=== PATIENT | female | born 1940 | race Caucasian/White ===

== ENCOUNTER 2016-11-07 05:55 | Emergency (ER) | payer MEDICARE, MEDICAID ==
[2015-03-21 08:45] VITALS: BMI 33.9
[~2016-11-07 05:55] MED LIST: ASPIRIN81 MG PO; ATIVAN1 MG PO; COREG6.25 MG PO; IPRAT-ALBUT 0.5-3 ML UPD; ISOSORBIDE MONO60 M1 PO; K-TAB10 MEQ PO; LASIX40 MG PO; PLAVIX75 MG PO; PRAVACHOL20 MG PO; PRILOSEC20 MG PO
[2016-11-07 06:39] LABS: BASOPHILS 0.1 % (0.0-2.0); EOSINOPHILS 2.2 % (0-7); HEMOGLOBIN 15.3 g/dL (12-16); IMMATURE GRANULOCYTES 0.5 % (0-5); LYMPHOCYTES 23.4 % (15-50); MCH 30.4 pg (26.0-34.0); MCHC 31.9 g/dL (31.0-37.0); MCV 95.4 fL (80.0-100.0); MEAN PLATELET VOLUME 10.1 fL (7.4-10.4); MONOCYTES 9.2 % (2-11); NEUTROPHILS 64.6 % (40-80); PLATELET COUNT 132 10x3/uL (130-400); RBC 5.03 10x6/uL (4.00-5.40); RDW 14.5 % (11.5-14.5); WBC 7.6 10x3/uL (4.8-10.8)
[2016-11-07 06:55] LABS: ALBUMIN 3.2 g/dL (3.4-5.0); ALKALINE PHOSPHATASE 76 U/L (46-116); ALT (SGPT) 23 U/L (10-68); BILIRUBIN - TOTAL 0.59 mg/dL (0.2-1.3); CALC OSMOLALITY 279 mosm/kg (275-300); CALCIUM 8.9 mg/dL (8.5-10.1); CHLORIDE - SERUM 96 mmol/L (98-107); CREATININE - SERUM 0.7 mg/dL (0.6-1.3); GLUCOSE 139 mg/dL (74-106); POTASSIUM - SERUM 3.4 mmol/L (3.5-5.1); PROTEIN - SERUM 6.4 g/dL (6.4-8.2); SODIUM 139 mmol/L (136-145); UREA NITROGEN 13 mg/dL (7-18); eGFR NON AFRICAN AMERICAN 87 mL/min (90-120)
[2016-11-07 09:26] LABS: MAGNESIUM - SERUM 1.7 mg/dL (1.8-2.4)
== END 2016-11-07 10:11 | disposition home or self-care (01) ==
LOC: D.ER 05:55
PROVIDERS: Emergency Medicine; Family Medicine
DX: J44.1 Chronic obstructive pulmonary disease with (acute) exacerbation (principal); R09.02 Hypoxemia

== ENCOUNTER 2016-11-16 13:56 | Inpatient (IN) | payer MEDICARE, MEDICAID ==
[~2016-11-16] VITALS: Ht 157.5 cm; Wt 81.6 kg
[2016-11-16 14:33] LABS: BASOPHILS 0.2 % (0.0-2.0); EOSINOPHILS 1.5 % (0-7); HEMATOCRIT 43.5 % (36.0-48.0); IMMATURE GRANULOCYTES 0.3 % (0-5); LYMPHOCYTES 29.1 % (15-50); MCH 30.2 pg (26.0-34.0); MCHC 32.2 g/dL (31.0-37.0); MCV 93.8 fL (80.0-100.0); MEAN PLATELET VOLUME 10.6 fL (7.4-10.4); MONOCYTES 9.6 % (2-11); NEUTROPHILS 59.3 % (40-80); PLATELET COUNT 132 10x3/uL (130-400); RBC 4.64 10x6/uL (4.00-5.40); RDW 14.2 % (11.5-14.5); WBC 6.1 10x3/uL (4.8-10.8)
[2016-11-16 15:29] LABS: ALBUMIN 3.1 g/dL (3.4-5.0); ALKALINE PHOSPHATASE 69 U/L (46-116); ALT (SGPT) 23 U/L (10-68); BILIRUBIN - TOTAL 0.36 mg/dL (0.2-1.3); CALC OSMOLALITY 272 mosm/kg (275-300); CALCIUM 8.9 mg/dL (8.5-10.1); CHLORIDE - SERUM 96 mmol/L (98-107); CREATININE - SERUM 0.7 mg/dL (0.6-1.3); GLUCOSE 143 mg/dL (74-106); POTASSIUM - SERUM 4.1 mmol/L (3.5-5.1); PROTEIN - SERUM 6.1 g/dL (6.4-8.2); SODIUM 136 mmol/L (136-145); UREA NITROGEN 11 mg/dL (7-18); eGFR NON AFRICAN AMERICAN 87 mL/min (90-120)
[2016-11-16 15:38] LABS: PRO BNP 265 pg/mL (0-125)
[2016-11-16 15:40] LABS: TROPONIN-I 0.017 ng/mL (0.000-0.060)
[2016-11-16 16:01] LABS: APPEARANCE CLEAR (CLEAR); BILIRUBIN NEGATIVE (NEGATIVE); COLOR YELLOW (YELLOW); GLUCOSE NEGATIVE (NEGATIVE); KETONE NEGATIVE (NEGATIVE); LEUKOCYTE ESTERASE NEGATIVE (NEGATIVE); NITRITE NEGATIVE (NEGATIVE); PROTEIN NEGATIVE (NEGATIVE); UROBILINOGEN NORMAL (NORMAL)
--- NOTE | 2016-11-16 17:45 | NUR ---
PT TO ROOM 2227 FROM [facility].ASSESSMENT PER ADMIT PACK.PT UNABLE OR UNWILLING TO ANSWER QUESTIONS AT THIS TIME,RE... MEDS AND HISTORY.SPOKE WITH HER SON VINICIUS MARSHALL WHO STATES SHE CAN BECOME DIFFICULT AT TIMES WHEN SHE GETS MAD.HER SON ALSO STATES SHE IS ON [facility].SON STATES SHE MAKES HER OWN MEDIAL DECISIONS AND WISHES TO BE DNR. MYSELF AND RICARDO CHEEMA R.N. CONFIRMED THIS WITH PT AND INDEED SHE WISHES TO BE DNR.
[2016-11-16 19:00] VITALS: BP 153/75
--- NOTE | 2016-11-16 19:43 | NUR ---
BROUGHT PATIENT WATER AND A BLANKET PER HER REQUEST. PATIENT DENIES OTHER NEEDS AT THIS TIME. BED IN LOWEST POSITION AND CALL LIGHT WITHIN REACH. ENCOURAGED PATIENT TO CALL IF SHE HAS FURTHER NEEDS.
[2016-11-17] VITALS: BP 184/93
[2016-11-17 04:00] VITALS: BP 131/61
[2016-11-17 06:22] LABS: BASOPHILS 0.2 % (0.0-2.0); EOSINOPHILS 0.3 % (0-7); HEMOGLOBIN 14.5 g/dL (12-16); IMMATURE GRANULOCYTES 0.2 % (0-5); LYMPHOCYTES 26.4 % (15-50); MCH 30.6 pg (26.0-34.0); MCV 92.8 fL (80.0-100.0); MEAN PLATELET VOLUME 10.3 fL (7.4-10.4); MONOCYTES 11.9 % (2-11); RBC 4.74 10x6/uL (4.00-5.40); RDW 14.2 % (11.5-14.5); WBC 6.3 10x3/uL (4.8-10.8)
[2016-11-17 06:38] LABS: PLATELET COUNT 163 10x3/uL (130-400)
[2016-11-17 06:58] LABS: ALBUMIN 2.6 g/dL (3.4-5.0); ANION GAP 9.8 mmol/L (8-16); BILIRUBIN - TOTAL 0.5 mg/dL (0.2-1.3); CALCIUM 9.1 mg/dL (8.5-10.1); CARBON DIOXIDE 36.8 mmol/L (21.0-32.0); CREATININE - SERUM 0.8 mg/dL (0.6-1.3); POTASSIUM - SERUM 3.6 mmol/L (3.5-5.1); PROTEIN - SERUM 6.2 g/dL (6.4-8.2)
[2016-11-17 08:00] VITALS: BP 126/69
--- NOTE | 2016-11-17 09:16 | NUR ---
PT ASSESSMENT COMPLETE NO ACUTE DISTRESS NTOED VOICES ALL NEEDS TO STAFF HAS TRILLOGY NOTSD HOME UNIT PER PRESET ORDERS. LUNGS WITH DIMINISHED SOUNDS TO BASES BILATERALLY. BSA X 4 CELLULITIS NOTED TO BLE.
[2016-11-17 13:42] VITALS: Ht 157.5 cm; Wt 81.6 kg
--- NOTE | 2016-11-17 14:05 | NUR ---
IN BED AT THIS TIME. TRILOGY VENT ON AND IN USE. PROVIDED PT WITH WARM BLANKET. BED ALARM ON AND SRX2. CALL LIGHT IN REACH, DOOR REMAINS OPEN. WILL CONTINUE WITH PLAN OF CARE.
--- NOTE | 2016-11-17 14:32 | NUR ---
WALT MET WITH PATIENT AND SHE STATED SHE WAS ON HOSPICE AT ADMIT AND WOULD RETURN TO HOSPICE WHEN DISCHARGED. WALT CALLED [facility] (VANESSA) AND SHE STATED THE PATIENT WAS STILL ON HOSPICE BECAUSE SHE CAME TO HOSPITAL WITH ABCESS ON LEG AND THAT WAS NOT RELATED TO HER HOSPICE DX.
--- NOTE | 2016-11-17 14:53 | NUR ---
PT REQUESTED AND RECIEVED ATIVAN 1 MG PO FOR ANXIOUSNESS. WILL MONTIOR EFFECTIVENESS WAS UP IN CHAIR AT BEDSIDE TODAY FOR 2 HRS. TRILLOGY ON AND FUNCTIONAL BED ALARM IN PLACE
[2016-11-17] MEDS ORDERED: DIFLUCAN150 MG PO (15:00)
[2016-11-17] MEDS ORDERED: OMNICEF300 MG PO (15:00)
[2016-11-17] MEDS ORDERED: NYSTATIN1 PWD TOPICAL (15:00)
[2016-11-17 16:00] VITALS: BP 105/43
--- NOTE | 2016-11-17 16:03 | NUR ---
CM REASSESSMENT NOTE: PATIENT IS DISCHARGING HOME BY AMBULANCE AND IS ON [facility] WHEN DISCHARGED. VINICIUS (PATIENTS SON) IS AWARE DISCHARGE AND WILL BE AT HOME.
--- NOTE | 2016-11-17 18:14 | NUR ---
PT DISCHARGED TO HOME WITH HOSPICE CARE VIA AMBULANCE ALL BELONGINGS SENT WITH PT NIKOS SENT
== END 2016-11-17 18:15 | disposition home health service (06) | DRG 300 ==
LOC: D.ER 13:56 → D.SDCHOLD 16:29 → D.MS 16:29 → OBSVTIME 16:30 → D.MS 16:31
PROVIDERS: Emergency Medicine; ADMIT Family Medicine
DX: I87.391 Chronic venous hypertension (idiopathic) with other complications of right lower extremity (principal); L03.115 Cellulitis of right lower limb; J96.10 Chronic respiratory failure, unspecified whether with hypoxia or hypercapnia; F17.203 Nicotine dependence unspecified, with withdrawal; I10 Essential (primary) hypertension; J44.9 Chronic obstructive pulmonary disease, unspecified; R91.8 Other nonspecific abnormal finding of lung field; F41.9 Anxiety disorder, unspecified; Z66 Do not resuscitate

== ENCOUNTER 2017-01-16 18:07 | Observation (INO) | payer MEDICARE, MEDICAID ==
[~2017-01-16] VITALS: Ht 165.1 cm; Wt 85.0 kg
[~2017-01-16 18:07] MED LIST changes: +COREG25 MG PO; -COREG6.25 MG PO; +DIFLUCAN150 MG PO; -K-TAB10 MEQ PO; +NYSTATIN1 PWD TOPICAL; +OMNICEF300 MG PO; +POTASSIUM CHLO20 MEQ PO
[2017-01-16 18:39] LABS: BASOPHILS 0.1 % (0-2); EOSINOPHILS 1.2 % (0-7); HEMATOCRIT 46.8 % (36.0-48.0); HEMOGLOBIN 15.3 g/dL (12-16); IMMATURE GRANULOCYTES 0.3 % (0-5); LYMPHOCYTES 22.4 % (15-50); MCH 30.5 pg (26.0-34.0); MCHC 32.7 g/dL (31.0-37.0); MCV 93.4 fL (80.0-100.0); MEAN PLATELET VOLUME 10.3 fL (7.4-10.4); MONOCYTES 8.2 % (2-11); NEUTROPHILS 67.8 % (40-80); PLATELET COUNT 158 10x3/uL (130-400); RBC 5.01 10x6/uL (4.00-5.40); RDW 13.9 % (11.5-14.5); WBC 12.3 10x3/uL (4.8-10.8)
[2017-01-16 19:20] LABS: ALBUMIN 3.1 g/dL (3.4-5.0); ALKALINE PHOSPHATASE 72 U/L (46-116); ALT (SGPT) 21 U/L (10-68); BILIRUBIN - TOTAL 0.96 mg/dL (0.2-1.3); CALC OSMOLALITY 272 mosm/kg (275-300); CALCIUM 9.3 mg/dL (8.5-10.1); CARBON DIOXIDE 39.1 mmol/L (21.0-32.0); CHLORIDE - SERUM 94 mmol/L (98-107); CKMB 1.1 U/L (0.0-3.6); CREATINE KINASE 24 UL (21-215); CREATININE - SERUM 0.9 mg/dL (0.6-1.3); GLUCOSE 143 mg/dL (74-106); PRO BNP 335 pg/mL (0-125); PROTEIN - SERUM 6.6 g/dL (6.4-8.2); SODIUM 136 mmol/L (136-145); UREA NITROGEN 10 mg/dL (7-18); eGFR NON AFRICAN AMERICAN 65 mL/min (90-120)
[2017-01-16 19:21] LABS: TROPONIN-I < 0.017 ng/mL (0.000-0.060)
[2017-01-16 19:23] LABS: POTASSIUM - SERUM 2.9 mmol/L (3.5-5.1)
--- NOTE | 2017-01-16 21:40 | NUR ---
REC FROM ER VIA STRETCHER. TRANSFER TO BED WITH 4 NURSES ASSISTING. HAS ON A TRILOGY BIPAP FROM HOME. STATED SHE WEARS 24 HOURS/DAY. STATE SHE STILL SMOKES CIGARETTES. RESP TECH CHECKED O2 SAT AT 92%. IV IN LEFT HAND INTACT SL. CHANGED URINE SOAKED GOWN AND DIAPER. REQUESTED A FRASER. WILL NOTIFY MD OF PATIENT'S REQUEST.ORIENTED TO CALL LIGHT FOR ANY NEEDS OR DISCOMFORTS.
--- NOTE | 2017-01-16 22:00 | NUR ---
CHANGED GOWN AND BEDDING FOR INCONTINENCE OF URINE.
--- NOTE | 2017-01-16 22:15 | NUR ---
CHANGED FOR INCONTINENCE OF URINE, INSERTED FRASER 16F. A SMALL PUNTURE WOUND NOTED INSIDE RIGHT BUTTOCK CHEEK APPROXIMATELY 0.3 CM CIRCUMFERENCE. STATES NO TENDERNESS OR PAIN. LOOKS LIKE OLD HEALING PRESSURE ULCER.
[2017-01-16 23:40] VITALS: BP 108/58
--- NOTE | 2017-01-17 00:45 | NUR ---
REQUESTING UPD TX. REC'D ORDER FROM [facility]U APN TO GIVE ALBUTEROL UPD QID.
[2017-01-17 03:40] VITALS: BP 148/71; BMI 41.6
[2017-01-17 03:43] VITALS: BP 151/65
[2017-01-17 05:42] LABS: BASOPHILS 0.2 % (0-2); EOSINOPHILS 0.7 % (0-7); HEMATOCRIT 45.5 % (36.0-48.0); HEMOGLOBIN 14.8 g/dL (12-16); IMMATURE GRANULOCYTES 0.3 % (0-5); LYMPHOCYTES 17.9 % (15-50); MCH 30.2 pg (26.0-34.0); MCHC 32.5 g/dL (31.0-37.0); MCV 92.9 fL (80.0-100.0); MEAN PLATELET VOLUME 9.7 fL (7.4-10.4); MONOCYTES 8.3 % (2-11); NEUTROPHILS 72.6 % (40-80); PLATELET COUNT 148 10x3/uL (130-400); RDW 13.9 % (11.5-14.5); WBC 12.2 10x3/uL (4.8-10.8)
[2017-01-17 06:02] LABS: ANION GAP 9.3 mmol/L (8-16); CALCIUM 9.2 mg/dL (8.5-10.1); CREATININE - SERUM 0.8 mg/dL (0.6-1.3); POTASSIUM - SERUM 3.3 mmol/L (3.5-5.1)
--- NOTE | 2017-01-17 06:19 | NUR ---
REQUESTED UPDRAFT TX. CALLED RESP TECH. STATED TO EARLY TO ADMIN. EXPLAINED TO PATIENT.
[2017-01-17 09:27] VITALS: BP 157/77
[2017-01-17 09:37] VITALS: Ht 165.1 cm; Wt 85.0 kg
--- NOTE | 2017-01-17 10:57 | NUR ---
Patient Name: KAROLINE RANGEL Admission Status: ER Accout number: [id number] Admission Date: 01-16-2017 : 1940 Admission Diagnosis: Attending: ELAINA Current LOS: 1 Anticipated DC Date: 01-17-2017 Planned Disposition: Home with Hospice Primary Insurance: [facility] PLANNED EXTERNAL PROVIDER: [facility] Discharge Planning Comments: * Is the patient Alert and Oriented? Yes 0 * How many steps to enter\exit or inside your home? NONE 0 * PCP DR. REYES 0 * Pharmacy [facility] 0 * Preadmission Environment Home with Family 0 * ADLs Partial Dependent 0 * Partial ADLs (Assistance needed) Bathing Medication Management Transfers 0 * Equipment Bedside Commode Cane Nebulizer Other Oxygen Rolling Walker Wheelchair 0 * Other Equipment TRILOGY MACHINE ALL EQUIPMENT PROVIDED BY [facility] 0 * List name and contact numbers for known caregivers / representatives who currently or will assist patient after discharge: VINICIUS MARSHALL, SON, 0 * Community resources currently utilized Hospice Home 0 * Please name any agencies selected above. [facility] 0 * Additional services required to return to the preadmission environment? No 0 * Can the patient safely return to the preadmission environment? Yes 0 * Has this patient been hospitalized within the prior 30 days at any hospital? No 0 CM RECEIVED ORDER TO ARRANGE HOSPICE FOR PT'S DISCHARGE HOME. CM MET WITH PT IN ROOM TO DISCUSS DISCHARGE PLANNING AND NEEDS. PT REPORTS LIVING AT HOME DEPENDENT ON HER 3 SONS AND GARBAGE PICK UP MAN WHO ASSIST WITH DAILY BATHING. PT REPORTS HAVING ALL NEEDED MEDICAL EQUIPMENT EXCEPT FOR A LIFT AND THINKS SHE MIGHT NEED A LIFT SO THAT HER SON WILL NOT HAVE TO PICK HER UP OUT OF THE BED AT HOME. PT HAS HOME HOSPICE WITH [facility] AND ASKS TO GO HOME WITH HOSPICE. PT REPORTS SHE IS NOT ABLE TO RIDE IN A CAR AND TAKES AMBULANCE HOME. CM CALLED PT'S SON , VINICIUS MARSHALL, , WHO REPORTS BEING HOME TO RECEIVE PT. CM DISCUSSED PT'S REQUEST FOR A LIFT, VINICIUS REPORTS THAT IT MAY BE HELPFUL IF PT IS NOT ABLE TO ASSIST IN GETTING HERSELF UP VINICIUS IS THE FAMILY MEMBER HAVING TO PICK PT UP NOW. VINICIUS DENIES FURTHER DISCHARGE NEEDS FOR PT TO RETURN HOME WITH HOSPICE. CM CALLED HOSPICE [facility], , DISCUSSED PT'S DISCHARGE HOME TODAY, PT DID NOT REVOKE HOSPICE AND PT'S ADMITTING DIAGNOSIS IS NOT HER HOSPICE DIAGNOSIS SO PT REMAINS ON HOSPICE SERVICES TO RESUME WHEN PT ARRIVES BACK HOME. GENNARO WILL GO AHEAD AND ORDER A ALIS LIFT FOR PT'S HOME USE. PT'S ADMITTING DIAGNOSIS FOR HOSPICE ARE: ABNORMAL FINDING OF LUNG FIELD AND COPD. FOR DISCHARGE HOME WITH HOSPICE, NOTIFY VINICIUS MARSHALL, ; NOTIFY HOSPICE [facility], , FAX DISCHARGE INFORMATION TO HOSPICE AT [phone]. Supervising Airplane Pilot: Osmani Moctezuma
[2017-01-17] MEDS ORDERED: GABAPENTIN100 MG PO (11:30)
[2017-01-17] MEDS ORDERED: MUCINEX600 MG PO (11:31)
[2017-01-17] MEDS ORDERED: HALDOL ORA30 MG/15 M PO (11:36)
[2017-01-17] MEDS ORDERED: TYLENOL650 MG RC (11:38)
[2017-01-17] MEDS ORDERED: DULCOLAX10 MG/SUPP RC (11:38)
[2017-01-17] MEDS ORDERED: NEXIUM40 MG PO (11:39)
[2017-01-17] MEDS ORDERED: MECLIZINE HCL25 MG PO (11:40)
[2017-01-17] MEDS ORDERED: MORPHINE SUL20 MG/ML PO (11:41)
[2017-01-17] MEDS ORDERED: PROAIR HFA8.5 GM INH (11:42)
[2017-01-17] MEDS ORDERED: PREDNISONE10 MG PO (11:42)
[2017-01-17] MEDS ORDERED: COMPAZINE10 MG PO (11:43)
[2017-01-17] MEDS ORDERED: SENNA LAXATIVE8.6 MG PO (11:44)
[2017-01-17] MEDS ORDERED: SILVADENE20 GM TP (11:44)
[2017-01-17] MEDS ORDERED: PEPTO-BISM525 MG/15 PO (11:46)
[2017-01-17 12:22] VITALS: BP 118/85
--- NOTE | 2017-01-17 14:18 | NUR ---
SPOKE WITH VINICIUS FOSTER/SON VIA PHONE TO ADVISE DISCHARGE IS COMPLETE AND [facility] WILL BE TRANSPORTING PT TO HOME.
--- NOTE | 2017-01-17 14:25 | NUR ---
Patient Name: KAROLINE RANGEL Encounter No: [id number] : 1940 Primary Insurance: [id number] Anticipated DC Date: 01-17-2017 Planned Disposition: Home with Hospice External Planned Provider: [facility] DCP follow-up note: CM RECEIVED DISCHARGE ORDER, SPOKE TO PT IN ROOM WHO IS IN AGREEMENT WITH DISCHARGE HOME WITH [facility] RESUMPTION TODAY. CM CALLED HOSPICE [facility], , NOTIFIED [facility] AND FAXED HOSPITALIZATION AND DISCHARGE INFORMATION TO HOSPICE AT [phone] FOR RESUMPTION OF HOSPICE CARE AFTER PT ARRIVES HOME THIS AFTERNOON VIA AMBULANCE. Vice President Of Nursing: Osmani Moctezuma
--- NOTE | 2017-01-17 14:58 | NUR ---
IV, TELEMETRY, AND FRASER DCD. TRASPORTED HOME BY [employer].
== END 2017-01-17 14:58 | disposition home health service (06) ==
LOC: D.ER 18:07 → D.M2 20:23 → OBSVTIME 20:23 → D.M2 20:23
PROVIDERS: Emergency Medicine; ADMIT Internal Medicine Interventional Cardiology
DX: R07.9 Chest pain, unspecified (principal); J96.22 Acute and chronic respiratory failure with hypercapnia; J96.21 Acute and chronic respiratory failure with hypoxia; J44.9 Chronic obstructive pulmonary disease, unspecified; I25.10 Atherosclerotic heart disease of native coronary artery without angina pectoris; Z95.5 Presence of coronary angioplasty implant and graft; I25.2 Old myocardial infarction; R91.1 Solitary pulmonary nodule; Z66 Do not resuscitate; I11.0 Hypertensive heart disease with heart failure; I50.9 Heart failure, unspecified; K21.9 Gastro-esophageal reflux disease without esophagitis; F41.9 Anxiety disorder, unspecified; Z99.81 Dependence on supplemental oxygen; E87.6 Hypokalemia; Z72.0 Tobacco use

== ENCOUNTER 2017-01-25 00:01 | Outpatient (CLI) | payer MEDICARE, MEDICAID ==
[~2017-01-25 00:01] MED LIST changes: +COMPAZINE10 MG PO; +DULCOLAX10 MG/SUPP RC; +GABAPENTIN100 MG PO; +HALDOL ORA30 MG/15 M PO; +MECLIZINE HCL25 MG PO; +MORPHINE SUL20 MG/ML PO; +MUCINEX600 MG PO; +NEXIUM40 MG PO; +PEPTO-BISM525 MG/15 PO; +PREDNISONE10 MG PO; +PROAIR HFA8.5 GM INH; +SENNA LAXATIVE8.6 MG PO; +SILVADENE20 GM TP; +TYLENOL650 MG RC
[2017-01-26] MEDS ORDERED: OMNICEF300 MG PO (16:05)
== END 2017-01-26 22:00 | disposition short-term general hospital (02) ==
LOC: D.OPS 00:01
DX: K72.90 Hepatic failure, unspecified without coma (principal); N39.0 Urinary tract infection, site not specified; J96.10 Chronic respiratory failure, unspecified whether with hypoxia or hypercapnia; C34.90 Malignant neoplasm of unspecified part of unspecified bronchus or lung; R41.82 Altered mental status, unspecified; I11.0 Hypertensive heart disease with heart failure; I50.9 Heart failure, unspecified; J44.9 Chronic obstructive pulmonary disease, unspecified; F41.9 Anxiety disorder, unspecified

== ENCOUNTER 2017-01-25 18:05 | Inpatient (IN) | payer MEDICARE ==
[~2017-01-25] VITALS: Ht 165.1 cm; Wt 83.9 kg
[2017-01-25 18:55] LABS: APPEARANCE HAZY (CLEAR); BILIRUBIN NEGATIVE (NEGATIVE); COLOR YELLOW (YELLOW); GLUCOSE NEGATIVE (NEGATIVE); KETONE NEGATIVE (NEGATIVE); LEUKOCYTE ESTERASE 2+ (NEGATIVE); NITRITE POSITIVE (NEGATIVE); PROTEIN NEGATIVE (NEGATIVE); SPECIFIC GRAVITY 1.015 (1.005-1.020); UROBILINOGEN NORMAL (NORMAL)
[2017-01-25 18:57] LABS: BACTERIA MANY /hpf (NONE SEEN); RED CELLS - URINE OCC /hpf (0-5); WHITE CELLS - URINE >50 /hpf (0-5)
[2017-01-25 19:02] LABS: BASOPHILS 0.1 % (0-2); HEMATOCRIT 45.1 % (36.0-48.0); HEMOGLOBIN 14.7 g/dL (12-16); IMMATURE GRANULOCYTES 0.4 % (0-5); LYMPHOCYTES 16.2 % (15-50); MCH 29.9 pg (26.0-34.0); MCHC 32.6 g/dL (31.0-37.0); MCV 91.9 fL (80.0-100.0); MEAN PLATELET VOLUME 11.1 fL (7.4-10.4); MONOCYTES 8.5 % (2-11); NEUTROPHILS 73.8 % (40-80); RBC 4.91 10x6/uL (4.00-5.40); RDW 13.7 % (11.5-14.5); WBC 8.2 10x3/uL (4.8-10.8)
[2017-01-25 19:03] LABS: PLATELET COUNT 197 10x3/uL (130-400)
[2017-01-25 19:22] LABS: ALBUMIN 2.6 g/dL (3.4-5.0); ANION GAP 12.5 mmol/L (8-16); BILIRUBIN - TOTAL 0.49 mg/dL (0.2-1.3); CALCIUM 9.1 mg/dL (8.5-10.1); CARBON DIOXIDE 29.8 mmol/L (21.0-32.0); POTASSIUM - SERUM 4.3 mmol/L (3.5-5.1); PROTEIN - SERUM 6.7 g/dL (6.4-8.2)
--- NOTE | 2017-01-25 23:51 | NUR ---
RECEIVED FROM ER, PT HAS OWN BIPAP ON, IV-RFA-NS @10, JUSTINE ERVIN CUT GOWN OFF WITH PT PERMISSION, BED IS LOW, SRX2, BED ALARM ON, WILL CONTINUE TO MONITOR
[2017-01-26] VITALS: BP 108/62
--- NOTE | 2017-01-26 01:11 | NUR ---
SPEECH PATHOLOGIST AT BEDSIDE TO OBTAIN VITALS, CALL LIGHT IN REACH. WILL CONTINUE WITH PLAN OF CARE.
[2017-01-26 01:21] VITALS: Ht 165.1 cm; Wt 83.9 kg
--- NOTE | 2017-01-26 03:34 | NUR ---
ASSESSMENT COMPLETE, PT SLEEPING WITH OWN BIPAP ON, BED IS LOW, SRX2, BED ALARM IS ON, CALL LIGHT IN REACH, WILL CONTINUE PLAN OF CARE
[2017-01-26 04:00] VITALS: BP 153/90
--- NOTE | 2017-01-26 07:45 | NUR ---
INTRODUCED MYSELF TO PT PRIMARY RN FOR TODAYS SHIFT. PT IS AWAKE AND ALERT BUT CONFUSED TO SITUATION. PT THINKS SHE IS AT [facility]. ORIENTED PT TO SITUATION AND SHE STATES "I JUST NEED TO GO HOME, CALL VINICIUS AND LET ME GO" CALLED SON BUT NO ANSWER WILL TRY AGAIN LATER. CL IN REACH, BED IN LOWEST, SIDE RAILS X2. WILL CTM.
--- NOTE | 2017-01-26 08:30 | NUR ---
SHIFT ASSESSMENT COMPLETED AT THIS TIME. PT STILL CONFUSED TO SITUATION BUT IS AWAKE AND ALERT. PT STATES "IM WET" PT WAS SATURATED WITH URINE, ASSISTED FLATWORK TIER SETH AND COMPLETE BED BATH AND LINEN CHANGE WAS DONE. PT IS REFUSING TO EAT BREAKFAST OR DRINK AND STATES "IM GOING HOME" WILL CTM.
[2017-01-26 08:57] VITALS: BP 143/70
--- NOTE | 2017-01-26 09:04 | NUR ---
PATIENT IS CURRENTLY ON HOSPICE SERVICES WITH [facility]. I SPOKE WITH MAY AT [facility] AT [phone] AND SHE HAS CONFIRMED PATIENT IS ON THEIR SERVIES. THEY WILL RESUME HER CARE AT HOME AT DISCHARGE. I ATTEMPED TO SPEAK WITH THE PATIENT BUT WAS NOT ABLE TO INTERVIEW D/T PATIENT'S USE OF BIPAP. PATIENT'S SON, VINICIUS MARSHALL, IS NOT PRESENT AT THIS TIME. CM WILL FOLLOW.
[2017-01-26 12:13] VITALS: BP 110/72
--- NOTE | 2017-01-26 12:31 | NUR ---
PT TRYING TO GET OOB AND SWINGING HER FEET OUT. TRIED TO GET PT TO EAT AND DRINK BUT SHE REFUSES AND SAYS "I WANT TO GO HOME NOW, PLEASE CALL MY SON VINICIUS" WILL ATTEMPT TO CALL SON AGAIN. ASSISTED HER FEET BACK INTO BED AND MADE SURE BED ALARM IS ON. BED IN LOWEST, SIDE RAILS X2, WILL CTM.
--- NOTE | 2017-01-26 13:34 | NUR ---
PATIENT'S NURSE STATES SHE SPOKE WITH PATIENT'S SON, VINICIUS. HE TOLD HER HE THOUGHT THAT HIS MOTHER WAS COMING TO THE HOSPITAL FOR RESPITE CARE. I CALLED MAY AT [facility]. [phone]. SHE STATED THAT THEIR RIBBING MACHINE OPERATOR HAD SPOKEN WITH VINICIUS AND HE FEELS THAT THE PATIENT NEEDS TO BE SENT DIRECT FROM THE HOSPITAL TO A SNF FOR RESPID CARE. SHE STATES THAT THE PATIENT HAS NOT BEEN IN AGREEMENT TO GO FOR RESPID CARE IN THE PAST. SHE STATES THEY WILL HAVE THE RIBBING MACHINE OPERATOR, URIEL, COME TO THE HOSPITAL TO DISCUSS IT WITH HER. MAY WILL CALL ME BACK TO LET ME KNOW WHEN THEY WILL BE HERE. CM TO FOLLOW.
--- NOTE | 2017-01-26 15:29 | NUR ---
SPOKE WITH VANESSA AT [facility]. SHE STATES THAT CUPOLA TENDER, DAXA, IS COMING TO TALK WITH PATIENT ABOUT RESPITE CARE PLACEMENT. SHE STATES SHE IS ON HER WAY. SHE WILL LET US KNOW THE PLAN AFTER SHE MEETS WITH PATIENT.
[2017-01-26 15:59] VITALS: BP 147/78
--- NOTE | 2017-01-26 16:01 | NUR ---
OFFERED SCDS AND EXPLAINED RATIONALE BUT DENIES WANTING THEM AND WANTS TO BE LEFT ALONE AND WANTS TO GO HOME SHE STATED.
[2017-01-26] MEDS ORDERED: OMNICEF300 MG PO (16:05)
--- NOTE | 2017-01-26 16:26 | NUR ---
PATIENT BEING DIS[facility]. SHE WILL TRANSPORT BACK VIA AMBULANCE. SPOKE WITH HOSPICE AND REQUESTED INFORMATION FAXED.
--- NOTE | 2017-01-26 17:47 | NUR ---
D/C PTS R.FA PIV WITH CATHETER TIP FULLY INTACT. PT BEING DISCHARGED BACK TO HOME ON HOSPICE. CALLED EMS AND THEY ARE HERE TO PICK HER UP. SON VINICIUS NOTIFIED AND AWARE AND IS AT HOME WAITING ON HER TO ARRIVE. HOSPICE NURSE ALSO NOTIFIED AND WILL GO SEE HER AFTER SHE GETS HOME. NO FURTHER NEEDS.
== END 2017-01-26 17:54 | disposition home health service (06) | DRG 442 ==
LOC: D.ER 18:05 → D.M2 22:22
PROVIDERS: Emergency Medicine; ADMIT Family Medicine Adult Medicine
DX: K72.90 Hepatic failure, unspecified without coma (principal); N39.0 Urinary tract infection, site not specified; J96.10 Chronic respiratory failure, unspecified whether with hypoxia or hypercapnia; C34.90 Malignant neoplasm of unspecified part of unspecified bronchus or lung; R41.82 Altered mental status, unspecified; I11.0 Hypertensive heart disease with heart failure; I50.9 Heart failure, unspecified; J44.9 Chronic obstructive pulmonary disease, unspecified; F41.9 Anxiety disorder, unspecified

== ENCOUNTER 2017-02-08 11:00 | Emergency (ER) | payer MEDICARE, MEDICAID ==
[2017-02-08 11:52] LABS: APPEARANCE CLEAR (CLEAR); BILIRUBIN NEGATIVE (NEGATIVE); COLOR YELLOW (YELLOW); GLUCOSE NEGATIVE (NEGATIVE); KETONE NEGATIVE (NEGATIVE); LEUKOCYTE ESTERASE NEGATIVE (NEGATIVE); NITRITE NEGATIVE (NEGATIVE); PROTEIN NEGATIVE (NEGATIVE); UROBILINOGEN NORMAL (NORMAL)
[2017-02-08 12:14] LABS: BASOPHILS 0.1 % (0-2); EOSINOPHILS 0.2 % (0-7); HEMATOCRIT 45.2 % (36.0-48.0); IMMATURE GRANULOCYTES 0.5 % (0-5); LYMPHOCYTES 15.8 % (15-50); MCH 30.2 pg (26.0-34.0); MCHC 33.2 g/dL (31.0-37.0); MCV 91.1 fL (80.0-100.0); MEAN PLATELET VOLUME 11.8 fL (7.4-10.4); MONOCYTES 15.3 % (2-11); NEUTROPHILS 68.1 % (40-80); PLATELET COUNT 178 10x3/uL (130-400); RBC 4.96 10x6/uL (4.00-5.40); RDW 14.4 % (11.5-14.5); WBC 16.7 10x3/uL (4.8-10.8)
[2017-02-08 12:32] LABS: ALBUMIN 2.1 g/dL (3.4-5.0); ANION GAP 12.2 mmol/L (8-16); BILIRUBIN - TOTAL 0.76 mg/dL (0.2-1.3); CALCIUM 9.1 mg/dL (8.5-10.1); CARBON DIOXIDE 30.2 mmol/L (21.0-32.0); CREATININE - SERUM 1.5 mg/dL (0.6-1.3); MAGNESIUM - SERUM 1.8 mg/dL (1.8-2.4); POTASSIUM - SERUM 4.4 mmol/L (3.5-5.1)
== END 2017-02-08 14:25 | disposition home or self-care (01) ==
LOC: D.ER 11:00
PROVIDERS: Emergency Medicine
DX: N17.9 Acute kidney failure, unspecified (principal); E86.0 Dehydration; J44.9 Chronic obstructive pulmonary disease, unspecified; F17.200 Nicotine dependence, unspecified, uncomplicated; R06.89 Other abnormalities of breathing